=== PATIENT | male | born 1950 | race Caucasian/White ===

== ENCOUNTER 2016-06-08 07:42 | Day surgery (SDC) | payer MEDICARE, BC, OTHER ==
[2016-06-08] MEDS ORDERED: ACETAMINOPHEN 325 MG ONE (07:52)
[2016-06-08] MEDS: PHENYLEPHRINE HCL 10% OPHTHAL SOL ONE ×2 (08:04→08:16)
[2016-06-08] MEDS: PROPARACAINE HCL 0.5% OPHTHALMIC SOL ONE ×3 (08:04→09:00)
[2016-06-08] MEDS: CYCLOPENTOLATE 1% SOL ONE ×2 (08:04→08:16)
[2016-06-08] MEDS ORDERED: POVIDONE IODINE 5% SOL ONE (08:09)
[2016-06-08] MEDS ORDERED: TRYPAN BLUE 0.5 ML SOL IO ONE (08:09)
[2016-06-08] MEDS ORDERED: BSS W/ 0.25MG P.F. EPI 1 BOTTLE ONE (08:09)
[2016-06-08] MEDS ORDERED: LIDOCAINE HCL 1% MPF SOL ONE (08:09)
[2016-06-08] MEDS ORDERED: FENTANYL CITRATE 50 MCG/ML SOL ONE (08:25)
[2016-06-08] MEDS ORDERED: MIDAZOLAM 2 MG/2 ML SOL ONE (08:25)
[2016-06-08] MEDS ORDERED: ACETAZOLAMIDE 500 MG CER ONE (09:07)
[2016-06-08 09:49] VITALS: BP 135/74; PULSE 85; RESP 18; TEMP 97.7; O2SAT 97
== END 2016-06-08 10:05 | disposition home or self-care (01) | DRG 125 ==
LOC: SURG 07:42
PROVIDERS: ATTEND Ophthalmology
DX: H21.81 Floppy iris syndrome (principal); H57.09 Other anomalies of pupillary function
CPT/HCPCS: J2250; J3010; J2001

== ENCOUNTER 2017-03-29 09:43 | Inpatient (IN) | payer MEDICARE, BC ==
[2017-03-29 10:18] LABS: BASOPHILS % (AUTO) 1 % (0-3); EOSINOPHILS % (AUTO) 0 % (0-9); HEMATOCRIT 39 % (39-53); MEAN CORPUSCULAR HGB CONC 34.4 gm/dl (32.0-36.0); MEAN CORPUSCULAR VOLUME 92 fL (80-100); MONOCYTES % (AUTO) 9.1 % (0-12); NEUTROPHILS % (AUTO) 83.1 % (37-80)
[2017-03-29 10:19] LABS: ABG PH 7.43 (7.35-7.45)
[2017-03-29] MEDS: SODIUM CHLORIDE 0.9% FLUSH 10 ML SOL IV SCH ×2 (10:32→22:06)
[2017-03-29] MEDS: SOLUMEDROL 125 MG/2 ML 125 MG/2 ML PDS IV SCH ×3 (10:32→22:19)
[2017-03-29] MEDS: ALBUTEROL NEB SOL 2.5MG/3ML 1 VIAL SOL NEB PRN ×2 (10:33→14:16)
[2017-03-29 10:39] LABS: ALBUMIN 3.4 gm/dl (3.4-5.0); ALT 49 IU/L (14-63); CALCIUM 8.8 mg/dl (8.5-10.1); GLOM FILT RATE 65 mL/min (>60); POTASSIUM 3.6 mMol/L (3.5-5.1); SODIUM 144 mMol/L (136-145)
[2017-03-29] MEDS ORDERED: LEVOFLOXACIN 500 MG (PREMIX) 500 MG/100 ML SOL IV SCH (10:45)
[2017-03-29] MEDS: ALBUTEROL/IPRATROPIUM 1 VIAL SOL INH SCH ×3 (10:47→22:08)
[2017-03-29] MEDS ORDERED: SODIUM CHLORIDE 0.9% 500 ML 500 ML IV ONE ×2 (11:12→11:45)
[2017-03-29] MEDS ORDERED: AZITHROMYCIN 500 MG PDS IV ONE ×2 (11:12→11:45)
[2017-03-29] MEDS: OSELTAMIVIR PHOSPHATE 75 MG CAP PO SCH ×2 (11:33→22:06)
[2017-03-29] MEDS: ENOXAPARIN 40 MG SOL SC SCH (11:34)
[2017-03-29] MEDS: AZITHROMYCIN 500 MG PDS 500 MG in SODIUM CHLORIDE 0.9% 500 ML 500 ML IV SCH (12:05)
[2017-03-29] MEDS: CEFTRIAXONE 1 GM (PREMIX) 1 GM/50 ML SOL IV SCH (13:17)
[2017-03-29] MEDS: AMLODIPINE 5 MG TAB PO SCH (22:23)
[2017-03-30] MEDS: ALBUTEROL/IPRATROPIUM 1 VIAL SOL INH SCH ×4 (03:55→22:31)
[2017-03-30] MEDS: SODIUM CHLORIDE 0.9% FLUSH 10 ML SOL IV SCH ×8 (04:33→21:24)
[2017-03-30] MEDS: SOLUMEDROL 125 MG/2 ML 125 MG/2 ML PDS IV SCH ×4 (04:33→21:21)
[2017-03-30] MEDS ORDERED: LORAZEPAM 0.5 MG TAB PO PRN (08:00)
[2017-03-30] MEDS ORDERED: AZITHROMYCIN 500 MG PDS IV ONE (09:06)
[2017-03-30] MEDS ORDERED: SODIUM CHLORIDE 0.9% 500 ML 500 ML IV ONE (09:08)
[2017-03-30] MEDS: AZITHROMYCIN 500 MG PDS 500 MG in SODIUM CHLORIDE 0.9% 500 ML 500 ML IV SCH (09:14)
[2017-03-30] MEDS: ASPIRIN 81 MG CHEWABLE CTB PO SCH (09:20)
[2017-03-30] MEDS: DILTIAZEM ER 120 MG C24 PO SCH (09:21)
[2017-03-30] MEDS: LOSARTAN POTASSIUM 50 MG TAB PO SCH (09:21)
[2017-03-30] MEDS: AMLODIPINE 5 MG TAB PO SCH (09:22)
[2017-03-30] MEDS: SERTRALINE HYDROCHLORIDE 50 MG TAB PO SCH (09:23)
[2017-03-30] MEDS: OSELTAMIVIR PHOSPHATE 75 MG CAP PO SCH ×2 (09:23→20:54)
[2017-03-30] MEDS: ENOXAPARIN 40 MG SOL SC SCH (10:40)
[2017-03-30] MEDS: CEFTRIAXONE 1 GM (PREMIX) 1 GM/50 ML SOL IV SCH (11:59)
[2017-03-30] MEDS: ALBUTEROL NEB SOL 2.5MG/3ML 1 VIAL SOL NEB PRN ×2 (13:39→20:54)
[2017-03-30] MEDS: LORAZEPAM 2 MG/ML SOL IV PRN (14:00)
[2017-03-31] MEDS: SODIUM CHLORIDE 0.9% FLUSH 10 ML SOL IV SCH ×3 (04:11→20:07)
[2017-03-31] MEDS: SOLUMEDROL 125 MG/2 ML 125 MG/2 ML PDS IV SCH (04:11)
[2017-03-31] MEDS: ALBUTEROL/IPRATROPIUM 1 VIAL SOL INH SCH (04:12)
[2017-03-31] MEDS: BUDESONIDE/FORMOTEROL 160/4.5 AER INH SCH ×2 (07:00→20:07)
[2017-03-31] MEDS: TIOTROPIUM BROMIDE IH SCH (07:15)
[2017-03-31] MEDS ORDERED: AZITHROMYCIN 500 MG PDS IV ONE (08:48)
[2017-03-31] MEDS ORDERED: SODIUM CHLORIDE 0.9% 500 ML 500 ML IV ONE (08:49)
[2017-03-31] MEDS: AZITHROMYCIN 500 MG PDS 500 MG in SODIUM CHLORIDE 0.9% 500 ML 500 ML IV SCH (09:15)
[2017-03-31] MEDS: ASPIRIN 81 MG CHEWABLE CTB PO SCH (09:34)
[2017-03-31] MEDS: DILTIAZEM ER 120 MG C24 PO SCH (09:36)
[2017-03-31] MEDS: LOSARTAN POTASSIUM 50 MG TAB PO SCH (09:38)
[2017-03-31] MEDS: AMLODIPINE 5 MG TAB PO SCH (09:40)
[2017-03-31] MEDS: OSELTAMIVIR PHOSPHATE 75 MG CAP PO SCH ×2 (09:41→20:07)
[2017-03-31] MEDS: SERTRALINE HYDROCHLORIDE 50 MG TAB PO SCH (09:42)
[2017-03-31] MEDS: PREDNISONE 20 MG TAB PO SCH (10:11)
[2017-03-31] MEDS: ALBUTEROL NEB SOL 2.5MG/3ML 1 VIAL SOL NEB PRN ×3 (10:44→20:09)
[2017-03-31] MEDS: ENOXAPARIN 40 MG SOL SC SCH (11:26)
[2017-03-31] MEDS: PANTOPRAZOLE SODIUM 40 MG ECT PO SCH (13:37)
[2017-03-31] MEDS: CEFTRIAXONE 1 GM (PREMIX) 1 GM/50 ML SOL IV SCH (13:45)
[2017-03-31] MEDS: LORAZEPAM 2 MG/ML SOL IV PRN (15:05)
[2017-03-31] MEDS ORDERED: ALBUTEROL/IPRATROPIUM 1 VIAL SOL ONE (19:40)
[2017-04-01] MEDS: SODIUM CHLORIDE 0.9% FLUSH 10 ML SOL IV SCH ×4 (01:48→12:46)
[2017-04-01] MEDS: BUDESONIDE/FORMOTEROL 160/4.5 AER INH SCH (08:22)
[2017-04-01] MEDS: TIOTROPIUM BROMIDE IH SCH (08:23)
[2017-04-01] MEDS: AMLODIPINE 5 MG TAB PO SCH (08:24)
[2017-04-01] MEDS: PANTOPRAZOLE SODIUM 40 MG ECT PO SCH (08:24)
[2017-04-01] MEDS: DILTIAZEM ER 120 MG C24 PO SCH (08:24)
[2017-04-01] MEDS: SERTRALINE HYDROCHLORIDE 50 MG TAB PO SCH (08:24)
[2017-04-01] MEDS: PREDNISONE 20 MG TAB PO SCH (08:24)
[2017-04-01] MEDS: OSELTAMIVIR PHOSPHATE 75 MG CAP PO SCH (08:24)
[2017-04-01] MEDS: LOSARTAN POTASSIUM 50 MG TAB PO SCH (08:25)
[2017-04-01] MEDS: ASPIRIN 81 MG CHEWABLE CTB PO SCH (08:25)
[2017-04-01] MEDS ORDERED: AZITHROMYCIN 500 MG PDS IV ONE (08:37)
[2017-04-01] MEDS ORDERED: SODIUM CHLORIDE 0.9% 500 ML 500 ML IV ONE (08:37)
[2017-04-01] MEDS: AZITHROMYCIN 500 MG PDS 500 MG in SODIUM CHLORIDE 0.9% 500 ML 500 ML IV SCH (08:47)
[2017-04-01] MEDS: ENOXAPARIN 40 MG SOL SC SCH (11:13)
[2017-04-01] MEDS: CEFTRIAXONE 1 GM (PREMIX) 1 GM/50 ML SOL IV SCH (12:46)
[2017-04-01] MEDS: ALBUTEROL NEB SOL 2.5MG/3ML 1 VIAL SOL NEB PRN (13:00)
[2017-04-01 15:52] VITALS: BP 152/78; PULSE 76; RESP 16; TEMP 96.1; O2SAT 95
== END 2017-04-01 16:30 | disposition home or self-care (01) | DRG 192 ==
LOC: ACUTE CARE 09:43
PROVIDERS: ADMIT Family Medicine; ATTEND Family Medicine
DX: J44.1 Chronic obstructive pulmonary disease with (acute) exacerbation (principal); J11.1 Influenza due to unidentified influenza virus with other respiratory manifestations; J44.0 Chronic obstructive pulmonary disease with (acute) lower respiratory infection; R91.8 Other nonspecific abnormal finding of lung field
CPT/HCPCS: 36600; 71045; 71250; 80053; 82803; 84484; 85025; 94150; 94640; 94669; 94762; J0456; J0696; J1650; J2060; J2930; J7603; J7620; A9270-GY